=== PATIENT | male | born 1955 | race Caucasian/White ===

== ENCOUNTER 2020-03-22 07:03 | Inpatient (IN) | payer BC ==
[~2020-03-22] VITALS: Ht 185.4 cm; Wt 125.1 kg
[2020-03-22 07:42] LABS: BASO % 0.8 % (0.0-2.0); EOS # 0.1 (0.0-0.7); EOS % 1.5 % (0-4.0); GRAN # 3.4 (1.4-6.5); GRAN % 66.1 % (42.2-75.2); HEMATOCRIT 43.6 % (42.0-52.0); HEMOGLOBIN 14.9 g/dl (13.5-18.0); LYMPH # 1.2 (1.2-3.4); LYMPH % 22.5 % (20.0-51.0); MEAN CELL VOLUME 83 fl (80.0-100.0); MEAN CORPUSCULAR HEMOGLOBIN 29 pg (27.0-31.0); MEAN CORPUSCULAR HGB CONC 34 g/dl (33.0-37.0); MEAN PLATELET VOLUME 11.5 fl (7.4-10.4); MONO # 0.4 (0.1-0.6); MONO % 8.1 % (1.7-9.3); PLATELET COUNT 108 K/mm3 (130-400); RED BLOOD COUNT 5.23 M/mm3 (4.20-5.60); REDCELL DISTRIBUTION WIDTH-CV 14.7 % (11.5-14.5)
[2020-03-22 07:44] LABS: ALANINE AMINOTRANSFERASE 26 U/L (4-49); ALKALINE PHOSPHATASE 99 U/L (50-136); ANION GAP 9 mmol/L (7-16); AST,SGOT 33 U/L (15-37); BILIRUBIN,TOTAL 0.5 mg/dL (0.0-1.0); BLOOD UREA NITROGEN 20 mg/dL (9-20); CALCIUM 8.7 mg/dL (8.4-10.2); CARBON DIOXIDE 23 mmol/L (22-30); CHLORIDE 105 mmol/L (98-107); CREATININE, serum 0.91 (0.66-1.25); GLUCOSE 290 mg/dL (74-106); LIPASE 56 U/L (23-300); POTASSIUM 4.1 mmol/L (3.4-5.0); SODIUM 137 mmol/L (137-145); TOTAL PROTEIN 6.6 gm/dL (6.4-8.2)
[2020-03-22 07:56] LABS: TROPONIN-I < 0.012 ng/mL (0.000-0.035)
[2020-03-22] MEDS ORDERED: GLUCOPHAGE XR500 M1 PO (10:42)
[2020-03-22] MEDS ORDERED: MULTIVITAMIN SEN (10:42)
[2020-03-22] MEDS ORDERED: OMEGA-3 1000 MG1 CAP PO (10:43)
[2020-03-22] MEDS ORDERED: ADVIL200 MG PO (10:43)
[2020-03-22 12:00] VITALS: BP 155/86; PULSE 76; TEMP 97.5
[2020-03-22 12:10] VITALS: BP 155/86; PULSE 62; TEMP 97.5
[2020-03-22 14:54] LABS: COLLECTION METHOD CATHETER
[2020-03-22 15:04] LABS: MUCOUS Present /lpf; PH 5 (5-8); SQUAMOUS EPITHELIAL 0-2 /hpf; URINE APPEARANCE Clear; URINE BACTERIA None Seen /hpf; URINE BILIRUBIN Negative (NEGATIVE); URINE BLOOD Negative (NEGATIVE); URINE COLOR Yellow; URINE GLUCOSE 3+ (NEGATIVE); URINE KETONE 1+ (NEGATIVE); URINE LEUKOCYTE ESTERASE Negative (NEGATIVE); URINE NITRATE Negative (NEGATIVE); URINE PROTEIN(semi-quant) 2+ (NEGATIVE); URINE RBC 0-2 /hpf; URINE UROBILINOGEN Negative (NEGATIVE)
[2020-03-22 16:33] VITALS: BP 143/78; PULSE 61; TEMP 98
[2020-03-22 21:45] VITALS: BP 145/82; PULSE 69; TEMP 97.7
[2020-03-22 23:09] VITALS: BP 136/75; PULSE 68; TEMP 98.4
[2020-03-23 00:43] VITALS: BP 131/73; PULSE 67; TEMP 98
[2020-03-23 04:27] VITALS: BP 123/66; PULSE 62; TEMP 97.8
[2020-03-23 06:55] LABS: BASO % 0.5 % (0.0-2.0); EOS # 0.1 (0.0-0.7); EOS % 1.7 % (0-4.0); GRAN # 3.7 (1.4-6.5); GRAN % 64.4 % (42.2-75.2); HEMATOCRIT 40.2 % (42.0-52.0); HEMOGLOBIN 13.8 g/dl (13.5-18.0); LYMPH # 1.4 (1.2-3.4); LYMPH % 24.6 % (20.0-51.0); MEAN CELL VOLUME 83 fl (80.0-100.0); MEAN CORPUSCULAR HEMOGLOBIN 29 pg (27.0-31.0); MEAN CORPUSCULAR HGB CONC 34 g/dl (33.0-37.0); MEAN PLATELET VOLUME 11.1 fl (7.4-10.4); MONO # 0.5 (0.1-0.6); MONO % 8.5 % (1.7-9.3); PLATELET COUNT 106 K/mm3 (130-400); RED BLOOD COUNT 4.84 M/mm3 (4.20-5.60); REDCELL DISTRIBUTION WIDTH-CV 14.6 % (11.5-14.5)
[2020-03-23 07:05] LABS: CALCIUM 8.6 mg/dL (8.4-10.2); CREATININE, serum 0.75 (0.66-1.25); POTASSIUM 3.4 mmol/L (3.4-5.0)
[2020-03-23 07:20] VITALS: BP 134/80; PULSE 55; TEMP 98.2
[2020-03-23 11:50] VITALS: BP 129/82; PULSE 54; TEMP 98.7
[2020-03-23 15:44] VITALS: BP 137/88; PULSE 64; TEMP 98.4
[2020-03-23 19:55] VITALS: BP 135/78; PULSE 57; TEMP 97.5
[2020-03-24] VITALS (7 sets, daily range): BP systolic 121–171; BP diastolic 61–94; PULSE 52–65; TEMP 97.6–98.6
[2020-03-25 04:14] VITALS: BP 134/81; PULSE 60; TEMP 97.6
[2020-03-25 06:37] LABS: BASO % 0.7 % (0.0-2.0); EOS # 0.2 (0.0-0.7); EOS % 2.6 % (0-4.0); GRAN # 3.3 (1.4-6.5); HEMATOCRIT 42.7 % (42.0-52.0); HEMOGLOBIN 14.7 g/dl (13.5-18.0); LYMPH # 1.6 (1.2-3.4); LYMPH % 27.8 % (20.0-51.0); MEAN CELL VOLUME 83 fl (80.0-100.0); MEAN CORPUSCULAR HEMOGLOBIN 29 pg (27.0-31.0); MEAN CORPUSCULAR HGB CONC 34 g/dl (33.0-37.0); MEAN PLATELET VOLUME 10.2 fl (7.4-10.4); MONO # 0.6 (0.1-0.6); PLATELET COUNT 101 K/mm3 (130-400); RED BLOOD COUNT 5.16 M/mm3 (4.20-5.60); REDCELL DISTRIBUTION WIDTH-CV 14.7 % (11.5-14.5)
[2020-03-25 06:49] LABS: CALCIUM 8.5 mg/dL (8.4-10.2); CREATININE, serum 0.97 (0.66-1.25); POTASSIUM 3.4 mmol/L (3.4-5.0)
[2020-03-25 07:30] VITALS: BP 146/85; PULSE 63; TEMP 97.4
[2020-03-25 11:34] VITALS: BP 148/81; PULSE 60; TEMP 98.1
[2020-03-25 15:28] VITALS: BP 137/77; PULSE 66; TEMP 97.7
[2020-03-25 20:00] VITALS: BP 144/84; PULSE 63; TEMP 98.2
[2020-03-26] VITALS: BP 130/81; PULSE 61; TEMP 97.6
[2020-03-26 04:00] VITALS: BP 130/85; PULSE 53; TEMP 97.6
[2020-03-26 06:56] LABS: BASO % 0.6 % (0.0-2.0); EOS # 0.2 (0.0-0.7); EOS % 3.3 % (0-4.0); GRAN # 3.7 (1.4-6.5); GRAN % 58.9 % (42.2-75.2); HEMATOCRIT 44.9 % (42.0-52.0); HEMOGLOBIN 15.5 g/dl (13.5-18.0); LYMPH # 1.7 (1.2-3.4); LYMPH % 27.2 % (20.0-51.0); MEAN CELL VOLUME 83 fl (80.0-100.0); MEAN CORPUSCULAR HEMOGLOBIN 29 pg (27.0-31.0); MEAN CORPUSCULAR HGB CONC 35 g/dl (33.0-37.0); MEAN PLATELET VOLUME 10.9 fl (7.4-10.4); MONO # 0.6 (0.1-0.6); MONO % 9.4 % (1.7-9.3); PLATELET COUNT 113 K/mm3 (130-400); RED BLOOD COUNT 5.43 M/mm3 (4.20-5.60)
[2020-03-26 07:01] LABS: CALCIUM 8.7 mg/dL (8.4-10.2); CREATININE, serum 0.95 (0.66-1.25); POTASSIUM 3.5 mmol/L (3.4-5.0)
[2020-03-26 07:39] VITALS: BP 134/85; PULSE 53; TEMP 98.1
[2020-03-26] MEDS ORDERED: MIRALAX510G PO (07:53)
[2020-03-26] MEDS ORDERED: PLAVIX 75MG TAB75 MG PO (07:53)
[2020-03-26] MEDS ORDERED: LIPITOR20 MG PO ×2 (07:53→15:50)
[2020-03-26] MEDS ORDERED: NOVLOG SQ (07:54)
[2020-03-26] MEDS ORDERED: LEVEMIR100 U/ML SQ (07:54)
[2020-03-26 11:09] VITALS: BP 138/87; PULSE 63; TEMP 97.8
[2020-03-26 16:32] VITALS: BP 136/87; PULSE 56; TEMP 97.6
== END 2020-03-26 17:15 | DRG 66 ==
LOC: COL.ER 07:03 → MEDICAL 09:46
PROVIDERS: Emergency Medicine; Physician Assistant; Student in an Organized Health Care Education/Training Program; ADMIT Hospitalist
DX: I63.9 Cerebral infarction, unspecified (principal); R27.0 Ataxia, unspecified; E11.9 Type 2 diabetes mellitus without complications; I10 Essential (primary) hypertension; E66.9 Obesity, unspecified; Z20.828 Contact with and (suspected) exposure to other viral communicable diseases; D69.6 Thrombocytopenia, unspecified; R29.701 NIHSS score 1; L03.032 Cellulitis of left toe; L03.031 Cellulitis of right toe; I35.1 Nonrheumatic aortic (valve) insufficiency; K59.00 Constipation, unspecified; G47.33 Obstructive sleep apnea (adult) (pediatric); Z79.84 Long term (current) use of oral hypoglycemic drugs; Z68.34 Body mass index [BMI] 34.0-34.9, adult
CPT/HCPCS: 99232-AI; 99233-AI; 99239; A9585; J1650; J1815; J7030; Q9967

== ENCOUNTER 2020-03-26 16:07 | Inpatient (IN) | payer BC ==
[~2020-03-26] VITALS: Ht 185.4 cm; Wt 117.6 kg
[~2020-03-26 16:07] MED LIST: ADVIL200 MG PO; GLUCOPHAGE XR500 M1 PO; LEVEMIR100 U/ML SQ; LIPITOR20 MG PO; MIRALAX510G PO; MULTIVITAMIN SEN; NOVLOG SQ; OMEGA-3 1000 MG1 CAP PO; PLAVIX 75MG TAB75 MG PO
--- NOTE | 2020-03-26 17:05 | NUR ---
PATIENT ARRIVED FROM 357 TO [facility]. PATIENT DENIES PAIN AT THIS TIME. VITALS OBTAINED. PATIENT SETTELED INTO ROOM. PATIENT DENIES ANY NEEDS AT THIS TIME. CALL LIGHT WITHIN REACH. WILL REPORT OFF TO ONCOMING NURSE.
[2020-03-26 18:00] VITALS: BP 129/76; PULSE 60; TEMP 98.4
[2020-03-26 18:20] VITALS: BP 132/77; PULSE 61; TEMP 98.4
--- NOTE | 2020-03-27 01:52 | NUR ---
PT WITH STAND BY ASSIST TO EDGE OF BED FROM RECLINER. DENIES PAIN, SOA. INT TO LEFT AC. VOICES NO C/O. CALL LIGHT WITHIN REACH. NO DIFFICULTY WITH SPEECH.
[2020-03-27 04:21] VITALS: BP 117/80; PULSE 56; TEMP 97.3
--- NOTE | 2020-03-27 14:15 | NUR ---
SW met with the patient to complete intake, as the patient is new to [facility]. The patient lives alone in [place]. He works for [employer]. He reports independence with ADLs prior to hospitalization and does not have any DME. The patient's PCP is Dr. Cele Graham and he receives his medications from [facility]. He reports no difficulties obtaining his meds. The patient does not have a DPOA-HC and he was not interested in completing a DPOA-HC at this time. The patient states that he is . He states that he has two children: Trinity and Chrissy. They live [place]. He states that he has not spoken to Chrissy is twenty years. He states that he does not know his son's phone number. The patient has two brothers. One lives in [place] and the other one in [place]. The patient states that he does not want his family contacted while here. A meeting with the IPR Team was scheduled for this Thursday at 1300. BRETT to continue to follow.
[2020-03-27 16:39] VITALS: BP 123/70; PULSE 60; TEMP 98.5
--- NOTE | 2020-03-27 17:31 | NUR ---
Patient attended all therapies and denied any pain this shift. Patient tolerating diet well. Patient is independent with eating and grooming. He has been walking without a cane or walker when working with therapy. Patient uses his call light appropriatly.
--- NOTE | 2020-03-27 20:30 | NUR ---
Initial shift assessment done- pt has been up in the chair this evening-- walked to bathroom standby assist- speech clear, denies any pain, no requests,,back to bed now for the night, continues with the bilateral lower extremity edema.
[2020-03-28 04:55] VITALS: BP 138/80; PULSE 60; TEMP 97.5
--- NOTE | 2020-03-28 06:10 | NUR ---
Quiet night, slept well, no requests, VSS this morning
[2020-03-28 08:45] VITALS: BP 142/84; PULSE 64; TEMP 98.2
[2020-03-28 11:57] VITALS: BP 136/77; PULSE 72; TEMP 98
--- NOTE | 2020-03-28 12:51 | NUR ---
Patient visiting with Barbra at this time, call light in reach and just finished his lunch. Denies questions at this time.
--- NOTE | 2020-03-28 12:52 | NUR ---
Soaked patients bilateral great toes with soapy water per orders due to redness and swelling. Cutical was lightly pushed back with cotton ball and cutical stick. Patient tolerated well. Will continue to monitor.
--- NOTE | 2020-03-28 15:16 | NUR ---
This nurse did patient's laundry since he only had one set of clothes available. SW was called and she did find a pair of sweat pants that patient was able to fit in. Patient currently resting in recliner, call light in reach. Will continue to monitor.
--- NOTE | 2020-03-28 15:51 | NUR ---
BRETT met with the patient to present and review the IPR Team Conference Note. SW informed him of the team's recommendation for a discharge next Thursday, 04/03, with outpatient PT/OT and possibly ST. The team is also recommending a shower seat and grab bars. The patient was agreeable to the plan. The patient states that he lives in an apartment complex and is unsure if he will be able to install grab bars. SW encouraged the patient to contact and ask his landlord. The patient also asked about transportation services to appointments, since he will not be able to drive yet to appointments. SW discussed the [employer] bus, transportation from friends, [employer], and [employer]. SW to continue to follow.
[2020-03-28 16:20] VITALS: BP 138/78; PULSE 61; TEMP 98.3
--- NOTE | 2020-03-28 17:29 | NUR ---
Patient signed admission papers this afternoon. He refused a flu shot and this was documented in the computer. Patient was seen by Dr. Gaitan see new orders for increase of Lememir at HS from 8 units to 10 units; and glucophage from 500 mg to 1000 mg at Supper. Patient currently resting in recliner, eating his supper. Will continue to monitor.
--- NOTE | 2020-03-28 20:00 | NUR ---
Report received, assumed care for inspector publications. Assessment complete. VS stable. A&Ox3. Denies pain/nausea/shortness of breath. Plan of care discussed for this shift to include HS meds/insulin/calling for questions/concerns. Verbalizes understanding. Call light in reach/bed alarm on. WIll monitor.
--- NOTE | 2020-03-29 | NUR ---
Resting eyes closed. No s/s of pain noted. Call light in reach/bed alarm on. Will monitor.
[2020-03-29 03:50] VITALS: BP 110/69; PULSE 61; TEMP 97.5
--- NOTE | 2020-03-29 07:07 | NUR ---
PT ASSISTED TO BATHROOM AT BEDSIDE SHIFT REPORT. PT REPORTS NOT NEEDING ANY ASSISTIVE DEVICES, PLAN TO CLARIFY WITH THERAPY THIS AM.
[2020-03-29 17:27] VITALS: BP 129/76; PULSE 64; TEMP 98.3
--- NOTE | 2020-03-29 17:37 | NUR ---
PT DENIED PAIN THIS SHIFT, CONTINUES WITH JUST SUPERVISION DURING TRANSFERS FROM CHAIR OR TO TOILET.
--- NOTE | 2020-03-29 20:30 | NUR ---
PT HAS FRUSTRATED/BORED AFFECT. DENIES PAIN. RESTING IN BED. RT SIDED WEAKNESS NOTED ALTHOUGH LOW PRESSURE KETTLE OPERATOR ARE STRONG BILAT. SPEECH CLEAR MOST OF THE TIME WITH OCCASIONAL DEFICT NOTED. AMB WITH PT IN NAQVI. PT WEARING MASK. SLIGHTLY UNSTEADY ON OCCASION WITH BALANCE. BACK TO ROOM. REFUSES HS SNACK. CALL LIGHT IN REACH. BED ALARM SET.
[2020-03-30 05:52] VITALS: BP 135/79; PULSE 57; TEMP 98.6
--- NOTE | 2020-03-30 06:57 | NUR ---
PT RESTING IN BED AT BEDSIDE SHIFT REPORT. BED ALARM ON, CALL LIGHT WITHIN REACH, BED IN LOW.
--- NOTE | 2020-03-30 12:55 | NUR ---
A Family Conference was conducted with pt. Also present was PT, OT, ST, & Show Card Letterer. Show Card Letterer started by explaining the purpose of the meeting. The therapists explained how pt has been functioning & making good progress. Discussed his d/c date of 04/03/20 to home w/ outpatient PT/OT. He is fine w/ this but is concerned about transportation & being able to get his medications, groceries, ect. Reassured him that we would get SW to help w/ this. He had no further questions but thankful to everyone for all their help.
--- NOTE | 2020-03-30 13:27 | NUR ---
Admission QIM scores were reviewed by the team. Code of 4 chosen for oral hygiene was determined by team discussion to be the most usual performance before interventions for this patient during the assessment period.--Barbra Sanchez, PD
[2020-03-30 15:53] VITALS: BP 123/70; PULSE 63; TEMP 97.9
--- NOTE | 2020-03-30 17:50 | NUR ---
PT TRANSFERRED TO [facility] 337 VIA BED BY SURGICAL NURSE AND HONE OPERATOR AROUND 1730. PT ORIENTED TO THE UNIT BY THIS NURSE AND MADE COMFORTABLE. CALL LIGHT WITHIN REACH, BED ALARM ON
--- NOTE | 2020-03-30 21:00 | NUR ---
PT RESTING IN BED. WATCHING TV. DENIES NEEDS AT THIS TIME. PLEASANT AND COOPERATIVE.
--- NOTE | 2020-03-30 23:00 | NUR ---
ASSISTED PT TO BR. SOME RT SIDED NEGLECT AND SL OFF BALANCE AT TIMES. TOOK WALK IN HALLS. PT WORE MASK. CONTINUED RT SIDED WEAKNESS ALTHOUGH QUALITY REVIEW TRAINER STRONG BILAT. DENIES PAIN. RETURN TO ROOM. NO NEEDS A THIS TIME.
[2020-03-31 05:37] VITALS: BP 121/74; PULSE 62; TEMP 98
--- NOTE | 2020-03-31 15:01 | NUR ---
Soaked patient's bilateral great toes. Patient removed some skin from the left side of the left great toe prior to soaking. This caused bleeding - area was cleaned, patted dry and pressure dressing applied to area. Patient tolerated well. Will continue to monitor.
[2020-03-31 16:31] VITALS: BP 130/73; PULSE 77; TEMP 98.3
--- NOTE | 2020-03-31 23:22 | NUR ---
PLEASANT AND COOPERATIVE. SITTING UP IN BED WATCHING TV. DENEIES PAIN. MOD I IN ROOM. RT SIDED WEAKNESS. WANTES TO THE RT ALITTLE BUT STEADY.
[2020-04-01 05:38] VITALS: BP 131/81; PULSE 67; TEMP 98.6
--- NOTE | 2020-04-01 10:53 | NUR ---
Patient is resting in bed at this time, call light in reach and is Mod I in his room. Patient denies any questions this morning. Takes his pills whole with water.
--- NOTE | 2020-04-01 15:52 | NUR ---
Took patient for a walk to get some exercise. Patient tolerated well. Soaked patient's bilateral toes, patted dry and replaced dressing to left great toe due to some bleeding. Will continue to monitor.
[2020-04-01 16:15] VITALS: BP 141/79; PULSE 73; TEMP 98.9
--- NOTE | 2020-04-01 21:12 | NUR ---
PT WALKED IN THE NAQVI W/ STAFF. JEFFREY WELL. PT C/O RT SHOULDER PAIN. SEE MAR FOR TYLENOL GIVEN. MOD I IN ROOM. USING GOOD SAFETY JUDGEMENT.
--- NOTE | 2020-04-01 22:35 | NUR ---
PT AMBULATING IN HALLS WITH STAFF. WEARS MASK. PT HAS RT SIDED WEAKNESS. URBAN AND REGIONAL PLANNER EQUAL BILAT. SPEECH IMPROVING. DENEIS PAIN. NO SSI NEEDED TO TONIGHT.
--- NOTE | 2020-04-02 04:41 | NUR ---
PT RESTING SNORUS RESPIRATIONS. NO DISTRESS. CONTINUES MOD I IN ROOM.
--- NOTE | 2020-04-02 07:06 | NUR ---
PT SLEEPING IN BED AT BEDSIDE SHIFT REPORT. BED IN LOW, CALL LIGHT WITHIN REACH, MOD-I IN ROOM.
--- NOTE | 2020-04-02 16:18 | NUR ---
BRETT met with the patient to follow up on preference for outpatient therapy and to discuss the different transportation services and groceries. The patient chose [facility] on [address]. BRETT contacted [facility] on [address] and secured the patient and outpatient PT appointment on 04/10 at 1300 and an OT appointment on 04/10 at 1430. BRETT informed the patient's RN of the appointments. BRETT will need to fax the patient's d/c orders to [facility] on [address] at [phone]). BRETT then informed the patient of the different public transportation services in [place]: [employer], [employer], and the [employer] application. SW provided him with the [employer] and [employer]'s phone number. BRETT contacted [employer]. The entry level receptionist reports that they do not deliver, but can do order picks up online. BRETT informed the patient of [employer] online order picking machine operator helper option. The patient verbalized understanding. He states that he will need to talk to his co-worker and maybe he can take him to some appointments or to get groceries. The patient also asked about getting prescriptions delivered. The patient's preferred pharmacy in [facility]. SW contacted [facility] and the entry level receptionist reports that they do not deliver. BRETT informed the patient of this. The patient was interested in getting his meds delivered from [facility]. BRETT contacted María and Dayna at [facility]. Dayna reports that they can deliver the patiet's meds to his home tomorrow, but will need his insurance/prescription cards. The patient provided SW with his insurance and prescription/discount cards. BRETT notified and emailed the cards to [facility]. María is going to look over the cards to determine if he would have a co-pay on his meds.
[2020-04-02 18:19] VITALS: BP 132/78; PULSE 82; TEMP 99.2
--- NOTE | 2020-04-02 19:22 | NUR ---
PT TOLERATING MOD-I IN ROOM WELL. NO ISSUES NOTED TODAY. APPOINTMENTS MADE FOR DISCHARGE TOMORROW. PT NEEDS DIABETIC FOOD CHOICE EDUCATION.
--- NOTE | 2020-04-02 22:47 | NUR ---
Patient in bed resting. Alert and oriented x 3. Assessment complete. Patient independent in room. Denies pain at this time. Denies further needs at this time.
[2020-04-03 05:00] VITALS: BP 129/78; PULSE 66; TEMP 98
--- NOTE | 2020-04-03 06:14 | NUR ---
Patient has slept well throughout the night, minimal needs. Independent in room. Denies further needs at this time. Will report off to day shift.
[2020-04-03] MEDS ORDERED: GLUCOPHAGE XR500 M1 PO (08:55)
--- NOTE | 2020-04-03 09:35 | NUR ---
The patient's RN notified BRETT that the hospitalist transmitted the patient's prescriptions to [facility], since they also deliver. BRETT contacted [facility] and provided them with the patient's information. The cashier receptionist reports that they are able to deliver the patient's meds to his home today and request that the patient just give them a call, once he gets home. BRETT informed the patient of this and provided him with [facility]'s phone number. The patient verbalized understanding and was in agreement to doing this. The patient states that his co-worker will transport him back home today. The patient is to discharge back home today, 04/03, with outpatient PT/OT at [facility] on [address]. BRETT faxed the patient's d/c orders to [facility] on [address]. No additional needs at this time.
--- NOTE | 2020-04-03 11:07 | NUR ---
Discharge instructions reviewed with the patient, instructed to follow up with PCP/Neuro/Physical therapy as we have scheduled for him, discussed all medication changes and called scripts into [facility] [place] [facility] for him and they will deliver his meds to his home for him, patient is ambulatory and leaving with a co-worker/friend, I escorted him out the door
--- NOTE | 2020-04-03 13:08 | NUR ---
Discharge QIM scores were reviewed by the team. Code of 6 chosen for walk 150 feet was determined by team discussion to be the most usual performance for this patient during the assessment period.--Barbra Sanchez, PD
== END 2020-04-03 11:10 | disposition home or self-care (01) | DRG 57 ==
PROVIDERS: ADMIT Internal Medicine
DX: I69.351 Hemiplegia and hemiparesis following cerebral infarction affecting right dominant side (principal); I10 Essential (primary) hypertension; G47.33 Obstructive sleep apnea (adult) (pediatric); E66.9 Obesity, unspecified; E11.9 Type 2 diabetes mellitus without complications; L03.032 Cellulitis of left toe; L03.031 Cellulitis of right toe; D69.6 Thrombocytopenia, unspecified; K59.00 Constipation, unspecified; Z99.81 Dependence on supplemental oxygen
CPT/HCPCS: 99222-AI; 99231-AI; 99232-AI; 99239; J1650; J1815

== ENCOUNTER 2020-05-03 16:00 | Outpatient (RCR) | payer BC | END 2020-05-07 | disposition home or self-care (01) | LOC: MKS.ESL.OT → MKS.ESL.PT 05-08 13:00 | DX: I63.9 Cerebral infarction, unspecified (principal) ==

== ENCOUNTER 2020-11-02 09:14 | Day surgery (SDC) | payer BC ==
[~2020-11-02] VITALS: Ht 185.4 cm; Wt 127.0 kg
[2020-11-02] MEDS ORDERED: GLUCOTROL 5M5 MG/TAB PO (10:07)
[2020-11-02 10:20] VITALS: BP 142/90; PULSE 64; TEMP 97.2
[2020-11-02 10:45] VITALS: BP 136/85; PULSE 66; TEMP 97.6
--- NOTE | 2020-11-02 10:56 | NUR ---
Pt returns from [facility], awake and alert, ambulates to recliner without difficulty. Provided a muffin and water. Denies pain or nausea, will call coworker for ride home. Call light in reach.
[2020-11-02 11:00] VITALS: BP 135/57; PULSE 69
[2020-11-02 11:15] VITALS: BP 150/78; PULSE 69
[2020-11-02 11:30] VITALS: BP 146/99; PULSE 63
--- NOTE | 2020-11-02 12:00 | NUR ---
Pt doing well, denies pain or nausea, VSS. Discharge instructions provided. Pt taken to private car via wheelchair and left in care of employee from [facility].
== END 2020-11-02 12:10 | disposition home or self-care (01) ==
LOC: SDCO 09:14
DX: Z12.11 Encounter for screening for malignant neoplasm of colon (principal); D12.5 Benign neoplasm of sigmoid colon; K63.5 Polyp of colon; K57.30 Diverticulosis of large intestine without perforation or abscess without bleeding; M54.9 Dorsalgia, unspecified; E11.9 Type 2 diabetes mellitus without complications; I63.9 Cerebral infarction, unspecified; G47.33 Obstructive sleep apnea (adult) (pediatric); G89.29 Other chronic pain; Z20.822 Contact with and (suspected) exposure to COVID-19; Z79.899 Other long term (current) drug therapy; Z79.84 Long term (current) use of oral hypoglycemic drugs; Z99.89 Dependence on other enabling machines and devices; Z80.0 Family history of malignant neoplasm of digestive organs
CPT/HCPCS: J2704